=== PATIENT | female | born 1985 | race Caucasian/White ===

== ENCOUNTER 2020-05-10 11:31 | Emergency (ER) | payer MEDICAID ==
[~2020-05-10] VITALS: Ht 157.5 cm; Wt 40.7 kg
[~2020-05-10 11:31] MED LIST: NO MEDS
[2020-05-10 11:34] VITALS: BP 113/77
--- NOTE | 2020-05-10 14:10 | NUR ---
FLORENCIO RN: NO CALL X 1
--- NOTE | 2020-05-10 14:16 | NUR ---
FLORENCIO RN: CALLED NO ANSWER
--- NOTE | 2020-05-10 14:26 | NUR ---
FLORENCIO RN: CALLED NO ANSWER
== END 2020-05-10 14:47 | disposition left against medical advice (07) ==
LOC: ED 14:41
DX: R10.9 Unspecified abdominal pain (principal); Z53.21 Procedure and treatment not carried out due to patient leaving prior to being seen by health care provider